=== PATIENT | female | born 1970 | race Caucasian/White ===

== ENCOUNTER 2017-11-23 07:02 | Emergency (ER) | payer BC ==
[2017-11-23 07:12] VITALS: BP 101/52
[2017-11-23] MEDS ORDERED: Acetaminophen/HYDROcodone 325-5 MG Tab PO ONE (07:46)
--- NOTE | 2017-11-23 07:54 | EDM.PDOC ---
ED HPI GENERAL MEDICAL PROBLEM - General Chief Complaint: Upper Extremity Injury/Pain Stated Complaint: [facility] Time Seen by Provider: 11/23/17 07:37 Source of Information: Reports: Patient History Limitations: Reports: No Limitations - History of Present Illness INITIAL COMMENTS - FREE TEXT/NARRATIVE: The patient states that she slipped on ice on her deck around 06:00 this morning , falling onto her right upper extremity. She states that she felt a "pop", and presents with pain primarily to her right elbow, but extending to her forearm and up her humerus. No prior right elbow injury. The patient is otherwise uninjured. The patient's PCP is Dr. Bartolo Martínez. 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: Endometriosis - Past Surgical History HEENT Surgical History: Reports: Oral Surgery (Upper wisdom teeth extraction) GI Surgical History: Reports: Bariatric Procedure (Gastric bypass August 2005) , Cholecystectomy (2006), Other (See Below) (Exploratory laparoscopy x 3) Female Surgical History: Reports: Section (x 2), Hysterectomy (2006) , Other (See Below) (Urethral repair) Social & Family History - Family History Family Medical History: Noncontributory - Tobacco Use Smoking Status *Q: Never Smoker - Caffeine Use Caffeine Use: Reports: Coffee - Alcohol Use Alcohol Use History: Yes Alcohol Use Frequency: Socially - Recreational Drug Use Recreational Drug Use: No - Living Situation & Occupation Living situation: Reports: , with Spouse 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 ED EXAM, GENERAL - Physical Exam Exam: See Below Exam Limited By: No Limitations General Appearance: Alert, WD/WN, No Apparent Distress Extremities: Other (No visible abnormality to the right elbow, such as obvious deformity, ecchymosis, or abrasion. There is mild erythema to the area, but an ice pack has been on it. Mild swelling. Neurovascular status of the right upper extremity is intact.) ED TRAUMA EXTREMITY PROCEDURES - Splinting Right Upper Extremity Splint Site: Rt elbow Pre-Procedure NV Status: Normal Post-Procedure NV Status: Normal Splint Material: Fiberglass Splint Design: Gutter Applied & Form Fitted By: Provider Provider Post-Splint Application NV Check: NV Status Normal, Good Position Complications: No Course - Vital Signs Last Recorded V/S: Last Vital Signs Temp 36.1 C 11/23/17 07:07 Pulse 77 11/23/17 07:07 Resp 16 11/23/17 07:07 BP 101/52 L 11/23/17 07:07 Pulse Ox 100 11/23/17 07:07 - Orders/Labs/Meds Orders: Active Orders 24 hr Category Date Time Status Elbow Min 3V Rt [CR] Stat Exams 11/23/17 07:45 Taken Meds: Medications Discontinued Medications Generic Name Dose Route Start Last Admin Trade Name Freq PRN Reason Stop Dose Admin Hydrocodone Bitart/Acetaminophen 2 tab 11/23/17 07:46 11/23/17 07:50 Elkins 325-5 Mg PO 11/23/17 07:47 2 tab ONETIME ONE Administration - Re-Assessments/Exams Free Text/Narrative Re-Assessment/Exam: 11/23/17 08:23 5-view radiographs of the right elbow appears to demonstrate a moderately displaced radial head, with a fracture across the radial neck, although no elevation of the anterior or posterior fat pads is seen. The elbow is not dislocated. No other acute injury is identified. Formal read per the Radiologist pending. 11/23/17 08:[address] Wright at 08:26. He would like me to place the patient's arm into a long-arm splint, and have her follow-up with him this coming 11/28/2017. 11/23/17 08:44 The patient was placed into a long arm gutter splint. She'll be discharged home with a prescription for Elkins and a referral to Dr. Wright. Departure - Departure Time of Disposition: 08:44 Disposition: Home, Self-Care 01 Condition: Fair Clinical Impression: Fracture of radial neck, right, closed - Discharge Information Prescriptions: Acetaminophen/HYDROcodone [Elkins 325-5 MG] 1 - 2 tab PO Q6H PRN #18 tablet PRN Reason: Pain (Severe 7-10) Referrals: Bartolo Martínez MD [Ordering Only Provider] - David Wright MD [Physician] - Forms: ED Department Discharge Additional Instructions: You were seen in the emergency room after slipping and falling on ice, injuring your right elbow. Workup in the ER included x-rays of your elbow, which showed a moderately displaced right radial neck fracture. Your right arm was placed into a splint. The splint cannot get wet. We recommend that you apply an ice pack directly onto the splint over your right elbow for the next 2 days, in order to minimize swelling. Take ohba-imr-oxizuer ibuprofen, 2-3 tablets (400-600 mg) every 8 hours, with food, as needed for pain. You may take 1-2 tablets of the narcotic pain reliever Elkins up to every 6 hours , as needed for pain not relieved by ibuprofen. If you take Elkins, do not drive or operate heavy machinery for 10 hours afterwards. Elkins will likely cause constipation, so consider taking a stool softener. Follow-up with the Orthopedic Surgeon Dr. Wright this coming Tuesday, 2017. If any other problems, please do not hesitate to return to the ER. - My Orders Last 24 Hours: My Active Orders 11/23/17 07:45 Elbow Min 3V Rt [CR] Stat - Assessment/Plan Last 24 Hours: My Active Orders 11/23/17 07:45 Elbow Min 3V Rt [CR] Stat
--- NOTE | 2017-11-23 09:16 | CR ---
Right elbow: Four views of the right elbow were obtained. Impacted and angulated radial neck fracture is identified. Joint effusion is seen. No additional fracture or other bony abnormality is seen. Impression: 1. Radial neck fracture as described above. 2. Joint effusion. Diagnostic code #3
== END 2017-11-23 09:05 | disposition home or self-care (01) ==
LOC: JD.ED 07:02
DX: S52.131A Displaced fracture of neck of right radius, initial encounter for closed fracture (principal); Z88.8 Allergy status to other drugs, medicaments and biological substances; W00.0XXA Fall on same level due to ice and snow, initial encounter
CPT/HCPCS: 29105; 73080; 99284; A9270; 99283-25